=== PATIENT | female | born 1965 | race Caucasian/White ===

== ENCOUNTER 2024-10-12 19:02 | Emergency (ER) | payer OTHER ==
[2024-10-12] MEDS ORDERED: Boostrix 0.5 ML (Tdap) VIAL (>/=7 yrs of age) ONE (19:24)
[2024-10-12] MEDS ORDERED: Acetaminophen 500 MG TAB ONE (19:29)
[2024-10-12] MEDS ORDERED: Amoxicillin/Potassium Clav 875 MG TAB ONE (19:33)
== END 2024-10-12 19:48 | disposition home or self-care (01) ==
LOC: MADERS 19:02
DX: S81.851A Open bite, right lower leg, initial encounter (principal); Z23 Encounter for immunization; W54.0XXA Bitten by dog, initial encounter
CPT/HCPCS: 90471; 90715